=== PATIENT | male | born 1965 | race Caucasian/White ===

== ENCOUNTER 2021-01-12 16:09 | Outpatient (CLI) | payer BC, SELFPAY | END 2021-01-12 16:10 | disposition home or self-care (01) | LOC: ANHCOVIDVC 16:09 | PROVIDERS: PCP Internal Medicine | DX: Z23 Encounter for immunization (principal) | CPT/HCPCS: 0001A; 91300 ==

== ENCOUNTER 2021-02-02 16:15 | Outpatient (CLI) | payer BC, SELFPAY | END 2021-02-02 16:16 | disposition home or self-care (01) | LOC: ANHCOVIDVC 16:15 | PROVIDERS: PCP Internal Medicine | DX: Z23 Encounter for immunization (principal) | CPT/HCPCS: 0002A; 91300 ==

== ENCOUNTER 2021-08-04 01:30 | Day surgery (SDC) | payer BC, SELFPAY ==
[2021-07-21 14:42] VITALS: BMI 37.0
--- NOTE | 2021-08-03 14:29 | PM.HPGS ---
History of Present Illness History of Present Illness Consent: Risks, benefits, and alternatives have been discussed and questions answered. Patient agrees to proceed with procedure. Chief complaint: neoplasm screening Narrative: Javier Tompkins is a 55 year old male referred for colon cancer screening. He has a history of colon polyps Review of Systems Review of Systems: All systems reviewed & are unremarkable except as noted in HPI and below PMFSH Past Medical History Medical History Anxiety Essential (primary) hypertension Hyperlipidemia Obesity Obstructive sleep apnea (adult) (pediatric) Family History Family History Father Diabetes mellitus Family history of cardiovascular disease Family history of diabetes mellitus in first degree relative Mother Family history of malignant neoplasm Patient's mother is in good health Other Family history of malignant neoplasm of thyroid Hypertension Social History Social History Smoking packs per day: 1 Smoking cigarettes per day: 20.0 Years smoked: 10 Smoking pack-years: 10.00 Smoking status: Former smoker Second hand tobacco smoke exposure: No Smoking end date: 11/05/88 Alcohol intake: current Drinks per week: 8 Substance use type: does not use Living arrangements: with family Meds Home Medications and Allergies Home Medications Medication Instructions Recorded Confirmed Type lisinopril 40 mg tablet 40 mg PO DAILY #330 tablet 03/01/21 07/21/21 Rx bupropion HCl 150 mg 24 hr tablet, 150 mg PO QAM #90 tablet 05/13/21 07/21/21 Rx extended release Allergies Allergy/AdvReac Type Severity Reaction Status Date / Time No Known Allergies Allergy Verified 08/04/21 08:55 Exam Resp: Auscultation: clear to auscultation bilaterally Cardio: Rate: regular rate Rhythm: regular rhythm GI: GI Palp: Yes Soft to palpation and No Tenderness to palpation present (GI) Assessment and Plan Assessment and plan (1) Colon cancer screening: Code(s): Z12.11 - Encounter for screening for malignant neoplasm of colon Status: Acute Assessment and Plan: Colonoscopy with possible biopsy or polypectomy or cautery or injection of substances.
[2021-08-04 09:00] VITALS: BP 169/95; PULSE 62; RESP 20; TEMP 36.4; O2SAT 98; BMI 38.7
[2021-08-04] MEDS: LACTATED RINGERS 1,000 ML 150 ML IV CONT (09:08)
--- NOTE | 2021-08-04 09:36 | P.PNAN_ITS ---
Anes - Initial Pre Proc Eval Procedure: Operation Date: 08/04/21 10:15 Proposed Procedures p Screening Colonoscopy - Luis Becerra MD Date/Time: 08/04/21 09:36 Surgeon: Luis Becerra MD Pre Op Diagnosis: neoplasm screening Patient Data Age: 55 Gender: M Height: 1.8 m Weight: 125.9 kg Last Vital Signs Temp 97.6 F 08/04/21 09:00 Pulse 62 08/04/21 09:00 Resp 20 08/04/21 09:00 BP 169/95 H 08/04/21 09:00 Pulse Ox 98 08/04/21 09:00 Allergies Allergy/AdvReac Type Severity Reaction Status Date / Time No Known Allergies Allergy Verified 08/04/21 08:55 Home Medications Medication Instructions Recorded Confirmed Type lisinopril 40 mg tablet 40 mg PO DAILY #330 tablet 03/01/21 07/21/21 Rx bupropion HCl 150 mg 24 hr tablet, 150 mg PO QAM #90 tablet 05/13/21 07/21/21 Rx extended release Patient hx anesthesia problems: none Family hx anesthesia problems: none Results Review: All pre-operative results and documents have been reviewed as part of the pre-operative evaluation. [facility] Past Medical History Medical History (Updated 08/04/21 @ 09:31 by Davian Yarbrough MD) Anxiety Essential (primary) hypertension Hyperlipidemia Obesity Obstructive sleep apnea (adult) (pediatric) Family History Family History Father Diabetes mellitus Family history of cardiovascular disease Family history of diabetes mellitus in first degree relative Mother Family history of malignant neoplasm Patient's mother is in good health Other Family history of malignant neoplasm of thyroid Hypertension Social History Social History Smoking packs per day: 1 Smoking cigarettes per day: 20.0 Years smoked: 10 Smoking pack-years: 10.00 Smoking status: Former smoker Second hand tobacco smoke exposure: No Smoking end date: 11/05/88 Alcohol intake: current Drinks per week: 8 Substance use type: does not use Living arrangements: with family Anes - Eval Final PreProcedure Day of Procedure 08/04/21 09:36 Patient weight: obese Heart: regular rate and rhythm Lungs: clear to auscultation Airway: Mallampati scale class III Neurological: alert and oriented Last oral intake: >/= 8 hours ASA classification: III Emergent: no Anesthetic plan: proceed Anesthesia type and monitoring: general GIVS and standard monitoring Results Review: All pre-operative results and documents have been reviewed as part of the pre-operative evaluation. Informed Consent: The patient's anesthetic plan and its attendant risks and benefits were discussed with the patient/family/POA. Questions were solicited and answers provided to the satisfaction of the patient/family/POA.
[2021-08-04 10:36] VITALS: BP 104/61; PULSE 62; RESP 21; O2SAT 96
[2021-08-04 10:46] VITALS: BP 120/80; PULSE 56; RESP 18; O2SAT 97
[2021-08-04 10:56] VITALS: BP 135/83; PULSE 52; RESP 17; O2SAT 100
== END 2021-08-04 11:02 | disposition home or self-care (01) ==
PROVIDERS: PCP Internal Medicine; Visit Provider Internal Medicine Gastroenterology
PROC: 0DJD8ZZ Inspection of Lower Intestinal Tract, Via Natural or Artificial Opening Endoscopic (ICD-10-PCS; CPT 45378; principal; 2021-08-04 10:15)
DX: Z12.11 Encounter for screening for malignant neoplasm of colon (principal); D12.4 Benign neoplasm of descending colon; I10 Essential (primary) hypertension; E78.5 Hyperlipidemia, unspecified; G47.33 Obstructive sleep apnea (adult) (pediatric); F41.9 Anxiety disorder, unspecified; E66.9 Obesity, unspecified; Z68.38 Body mass index [BMI] 38.0-38.9, adult; Z87.891 Personal history of nicotine dependence
CPT/HCPCS: 45381; 45385; 88305; J2704; J7120